=== PATIENT | female | born 1990 | race Caucasian/White ===

== ENCOUNTER 2016-07-10 21:50 | Inpatient (IN) | payer OTHER ==
[~2016-07-10] VITALS: Ht 167.6 cm; Wt 97.5 kg
[~2016-07-10 21:50] MED LIST: PREN1TAB17 BU
[2016-07-10 22:03] VITALS: Ht 167.6 cm; Wt 97.5 kg
[2016-07-10 22:04] VITALS: BP 105/58; PULSE 68; RESP 18
[2016-07-10] MEDS ORDERED: AMPICILLIN 2 GM/NS (PMX) 100 ML IV ONE (23:00)
[2016-07-10] MEDS ORDERED: OXYTOCIN 30 UNITS/LR 500 ML IV PRN (23:00)
[2016-07-10] MEDS ORDERED: LIDOCAINE 1% (MPF) 30 ML INJ INJ PRN (23:00)
[2016-07-10] MEDS ORDERED: MISOPROSTOL 200 MCG TAB PR PRN (23:00)
[2016-07-10] MEDS ORDERED: LACTATED RINGER'S 1,000 ML IV PRN (23:00)
[2016-07-10] MEDS ORDERED: OXYTOCIN 30 UNITS/LR 500 ML IV SCH (23:00)
[2016-07-10] MEDS ORDERED: METHYLERGONOVINE 0.2 MG INJ IM PRN (23:00)
[2016-07-10] MEDS ORDERED: CARBOPROST 250 MCG INJ IM PRN (23:00)
--- NOTE | 2016-07-10 23:06 | RADRPT ---
PROCEDURE: Obstetrical ultrasound greater than 14 weeks CLINICAL INDICATION: Active labor TECHNIQUE: Real time sonographic imaging of the gravid uterus is performed transabdominally and mu ltiple static atkinson scale and Doppler images are submitted for review as are measurements. The image s are reviewed on the PACS. COMPARISON: 04/27/2016 FINDINGS: There is a single living intrauterine gestation in cephalic presentation. The heart beat is estimated at 137 bpm. The measurements are as follows: BPD:9.39 cm HC:33.47 cm AC:37.69 cm FL:7.47 cm Estimated gestational age is 39 weeks 1 day, appropriate interval growth compared to the prior study . The estimated date of delivery is 07/16/2016. The estimated weight is 3986 grams. Placenta is fundal and grade2. There is no evidence of placenta previa or abruption. The amniotic fluid is qualitatively low. RPTAT:HJJR IMPRESSION: 1. Single viable intrauterine gestation in cephalic presentation estimated at 39 weeks 1 day, approp riate growth compared to the prior study of 04/27/2016 with the estimated date of delivery 7. 2. Estimated weight 3986 g, the 89th percentile. 3. Fundal grade 2 placenta without abruption. 4. Qualitatively low amniotic fluid. Physician Addi Date Time Electronically viewed and signed by Physician Addi on 07/10/2016 23:06 JR/
[2016-07-10] MEDS: LACTATED RINGER'S 1,000 ML IV SCH (23:09)
[2016-07-10 23:11] LABS: ADD SCAN DIFF NO
[2016-07-10 23:24] LABS: BASOPHILS % 0.1 % (0.0-2.0); EOSINOPHILS # 0.1 10^3/ul (0.0-0.5); EOSINOPHILS % 0.6 % (0.0-7.0); HEMATOCRIT 35.1 % (37.0-47.0); HEMOGLOBIN 11.7 g/dl (12.0-16.0); LYMPHOCYTES # 1.7 10^3/ul (0.8-2.9); LYMPHOCYTES % 17.5 % (15.0-51.0); MEAN CORPUSCULAR HGB CONC 33.3 g/dl (32.0-37.0); MEAN CORPUSCULAR VOLUME 87.1 fl (82.0-101.0); MEAN PLATELET VOLUME 11.2 fl (7.4-10.4); MONOCYTE # 0.9 10^3/ul (0.3-0.9); MONOCYTES % 9.4 % (0.0-11.0); NEUTROPHIL # 6.8 10^3/ul (1.6-7.5); NEUTROPHILS % 71.9 % (39.0-77.0); PLATELET COUNT 228 10^3/UL (140-415); RED BLOOD COUNT 4.03 10^6/ul (4.20-5.40); RED CELL DISTRIBUTION WIDTH 14.6 % (11.5-14.5); WHITE BLOOD COUNT 9.4 10^3/ul (4.8-10.8)
[2016-07-10 23:29] LABS: INR 0.92; PROTIME 12.4 Sec (12.2-14.2)
[2016-07-10 23:31] LABS: PARTIAL THROMBOPLASTIN TIME 28.6 Sec (25.0-35.0)
--- NOTE | 2016-07-10 23:46 | TRIAGE ---
OB Triage Datetime Report Generated by CPN: 07/10/2016 23:45 Datetime: 07/10/2016 23:06 Assessment Type: Admission Assessment Vaginal Bleeding: None Maternal Assessment Level of Consciousness: Fully Conscious DTR's/Clonus: DTRs 2+; No Clonus Headache: Denies Blurred Vision: No Respiratory Effort: Unlabored; Regular Rhythm; Equal Expansion Breath Sounds, Left: Clear and Equal Breath Sounds, Right: Clear and Equal Nausea/Vomiting: Denies RUQ Epigastric Pain: Denies Lower Extremities Edema: None Degree: None Upper Extremities Edema: None Degree: None Facial Edema: None Fall Risk Assessment History of Falling: (0) No Secondary Diagnosis: (0) No Ambulatory Aid: (0) Bedrest/Nurse Assist IV Therapy: (0) No Gait: (0) Normal/Bedrest/Immobile Mental Status: (0) Oriented to Own Ability Fall Score: 0 Fall Risk Score Definition: No Risk: No action required Labor Evaluation Frequency: 1-4 Duration (sec)2399: 50-90 Quality: Moderate Pattern: Normal: <= 5 Contractions in 10 Minutes Resting Tone [place]: Relaxed Heart Rate FHR Baseline Rate: 120 Variability: Moderate 6-25 bpm Accelerations: 15X15 Decelerations: None Category: Category I Pain Assessment Pain Scale: 8 Pain Presence: Intermittent Pain Type: Contraction Pain Location: Abdomen; Back Pain Goal: 0 Vaginal Exam Dilatation (cms): 4.0 Effacement (%): 80 Station: -2 Membrane Status: Ruptured Membranes Ruptured Date/Time: 07/10/2016 17:00 Membranes Rupture Method: Spontaneous Amniotic Fluid Color: Clear Amniotic Fluid Amount: Scant Amniotic Fluid Odor: None Datetime: 07/10/2016 22:50 Comments: off monitor, Principal [employer] Developer at bedside for EFW Datetime: 07/10/2016 22:32 Effacement (%): 80 Station: -2 Membrane Status: Ruptured Datetime: 07/10/2016 22:31 Vaginal Exam Dilatation (cms): 4.0 Membrane Status: Intact Datetime: 07/10/2016 22:30 Stage of : OB Triage Temperature Route: Oral Labor Evaluation Frequency: 2-5 Monitor Mode: External Duration (sec)2399: 60-150 Quality: Moderate Pattern: Normal: <= 5 Contractions in 10 Minutes Resting Tone [place]: Relaxed Heart Rate FHR Baseline Rate: 130 Monitor Mode: External US Variability: Moderate 6-25 bpm Accelerations: 15X15 Decelerations: None Category: Category I Pain Assessment Pain Scale: 8 Pain Presence: Intermittent Pain Type: Cramping Pain Location: Abdomen; Back Pain Goal: 5 Pain Relief Measures: Comfort Measures Datetime: 07/10/2016 22:22 Vaginal Exam Dilatation (cms): 4.0 Effacement (%): 80 Station: -2 Exam By: ALEJANDRA Pool: Positive Nitrazine: Positive Datetime: 07/10/2016 22:12 EGA: 38.3 Arrived By: Ambulatory Arrived From: Home Datetime: 07/10/2016 22:10 Assessment Type: Triage Maternal Assessment Level of Consciousness: Fully Conscious DTR's/Clonus: DTRs 2+; No Clonus Headache: Denies Blurred Vision: No Respiratory Effort: Unlabored; Regular Rhythm; Equal Expansion Nausea/Vomiting: Denies RUQ Epigastric Pain: Denies Lower Extremities Edema: None (Annotations: OBESE PT.) Degree: None Facial Edema: None Fall Risk Assessment History of Falling: (0) No Secondary Diagnosis: (0) No Ambulatory Aid: (0) Bedrest/Nurse Assist IV Therapy: (0) No Gait: (0) Normal/Bedrest/Immobile Mental Status: (0) Oriented to Own Ability Fall Score: 0 Fall Risk Score Definition: No Risk: No action required Comment: REDNESS AROUND 1.5X1.5 INCHES , ON RT. THIGH Datetime: 07/10/2016 22:08 Time of Arrival: 07/10/2016 21:46 EGA: 39.0 Arrived By: Wheelchair Arrived From: Home Chief Complaint: SROM AT 1700 AND CXS SINCE 1800 Movement: Present Contractions: Irregular Time Contractions Began: 07/10/2016 18:00 Rupture of Membranes: Ruptured Vaginal Bleeding: None Vaginal Discharge: Present Time Provider Notified: 07/10/2016 22:32 Provider Notified: ESHAGHIAN Initial Plan: EFM, ASSESSMENT, CALL MD FOR ORDERS Datetime: 04/27/2016 22:09 Fall Score: 0 Fall Risk Score Definition: No Risk: No action required Datetime: 04/27/2016 22:08 EGA: 28.3
[2016-07-10 23:50] LABS: BARBITURATES Negative (NEGATIVE); BENZODIAZEPINES Negative (NEGATIVE); CANNABINOIDS Negative (NEGATIVE); COCAINE Negative (NEGATIVE); OPIATES Negative (NEGATIVE)
[2016-07-11] MEDS ORDERED: FENTAnyl 2MCG/ML-ROPIV 0.2% 100 ML ONE (00:54)
[2016-07-11] MEDS: AMPICILLIN 1 GM/NS (PMX) 50 ML IV SCH ×2 (03:25→07:00)
[2016-07-11] MEDS: LACTATED RINGER'S 1,000 ML IV SCH (03:58)
[2016-07-11] MEDS ORDERED: OXYTOCIN 30 UNITS/LR 500 ML IV SCH (04:30)
[2016-07-11] MEDS ORDERED: FENTAnyl 2MCG/ML-ROPIV 0.2% 100 ML BAG EPI SCH (06:00)
[2016-07-11] MEDS ORDERED: NALOXONE (0.4 MG/ML) INJ IV PRN (06:00)
--- NOTE | 2016-07-11 06:51 | LDN ---
Date/Time of Note Date/Time of Note DATE: 07/11/16 TIME: 06:49 Delivery Summary Placenta Delivered: Spontaneously Meconium: none Perineum intact?: Yes Perineal laceration repair: right labia minora laceration repair with 4-0 monocryl Anesthesia type: Epidural Estimated blood loss: 150 Sponge & Needle done & correct: Yes All needle counts correct: Yes Any foreign bodies felt in the: No Problems: Delivery Information Sex Infant Sex: male Apgars 1 Minute: 9 5 Minute: 9 Suctioning Nose & mouth suctioned at irene: No Delee suction performed: No Umbilical Cord Umbilical cord with: 3 Vessels Cord presentations: no nuchal cord Cord Blood was obtained: Yes MIGUEL ANGEL CRUZ MD Jul 11, 2016 06:51
[2016-07-11] MEDS ORDERED: DIPHENHYDRAMINE 25 MG CAP PO PRN (07:00)
[2016-07-11] MEDS ORDERED: MISOPROSTOL 200 MCG TAB PR PRN (07:00)
[2016-07-11] MEDS ORDERED: WITCH HAZEL/GLYCERIN PAD PR PRN (07:00)
[2016-07-11] MEDS ORDERED: SENNA/DOCUSATE NA (8.6MG/50MG) TAB PO PRN (07:00)
[2016-07-11] MEDS ORDERED: CARBOPROST 250 MCG INJ IM PRN (07:00)
[2016-07-11] MEDS ORDERED: ONDANSETRON 4 MG INJ IV PRN (07:00)
[2016-07-11] MEDS ORDERED: METHYLERGONOVINE 0.2 MG INJ IM PRN (07:00)
[2016-07-11] MEDS ORDERED: BENZOCAINE 20% 56 ML SPRAY TOP PRN (07:00)
[2016-07-11] MEDS ORDERED: OXYTOCIN 30 UNITS/LR 500 ML IV PRN (07:00)
[2016-07-11] MEDS ORDERED: OXYCODONE/ASPIRIN (4.88/325) TAB PO PRN ×2 (07:00)
[2016-07-11] MEDS: OXYTOCIN 30 UNITS/LR 500 ML IV SCH ×2 (07:26→08:00)
--- NOTE | 2016-07-11 08:40 | PREOPHP ---
DATE OF ADMISSION: 07/10/2016 HISTORY OF PRESENT ILLNESS: Ms. Meera Velazquez is a 26-year-old 2, para 1, EDC 07/17/2016 int rauterine at 39 weeks gestational age, presented to triage complaining of regular contract ions and spontaneous rupture of membranes around 1700 last night. On exam, she was found to be 480, -2. Her care took place at [facility]. MEDICAL HISTORY: Anemia. MEDICATIONS: 1. Iron. 2. vitamins. PAST SURGICAL HISTORY: None. OBSTETRICAL HISTORY: x1 vaginal delivery. GYNECOLOGIC HISTORY: 12, regular 3 to 4 days. Denies any sexually transmitted diseases. Sexually active with 1 partner. SOCIAL HISTORY: Denies any smoking, drugs or alcohol. FAMILY HISTORY: None. PHYSICAL EXAMINATION: HEENT: Within normal. LUNGS: CTA bilateral. CARDIOVASCULAR: S1, S2, regular rhythm. ABDOMEN: Gravid, nontender. Negative CVA bilateral. EXTREMITIES: Negative edema. No calf tenderness. VAGINAL EXAM: 480, -2. Rupture. heart tracing category 1, toco every 7 minutes. ASSESSMENT: Intrauterine at term in labor, spontaneous rupture of membranes. PLAN: Admitted for expected management and pain management. Dictated By: MIGUEL ANGEL MELENDEZ/OFELIA Conf#: [id number] DID#: [id number]
[2016-07-11] MEDS: SENNA/DOCUSATE NA (8.6MG/50MG) TAB PO SCH ×2 (09:00→21:29)
[2016-07-11 09:10] VITALS: BP 103/54; PULSE 98; RESP 18
[2016-07-11] MEDS: LANOLIN 7 GM TUBE TOP PRN (11:03)
[2016-07-11] MEDS: IBUPROFEN 600 MG TAB PO SCH ×2 (11:03→17:36)
[2016-07-11] MEDS: LACTATED RINGER'S 1,000 ML IV* SCH ×3 (11:25→22:51)
[2016-07-11 16:00] VITALS: BP 105/72; PULSE 72; RESP 19
[2016-07-11 19:30] VITALS: BP 98/57; PULSE 85; RESP 18
[2016-07-12] VITALS: BP 99/50; PULSE 69; RESP 18
[2016-07-12] MEDS: IBUPROFEN 600 MG TAB PO SCH ×4 (00:09→17:30)
[2016-07-12 04:00] VITALS: BP 94/53; PULSE 71; RESP 18
[2016-07-12] MEDS: LACTATED RINGER'S 1,000 ML IV* SCH ×3 (06:51→22:51)
[2016-07-12 07:30] VITALS: BP 100/53; PULSE 67; RESP 19
[2016-07-12 07:56] LABS: ADD SCAN DIFF NO
[2016-07-12 08:01] LABS: BASOPHILS % 0.2 % (0.0-2.0); EOSINOPHILS # 0.1 10^3/ul (0.0-0.5); EOSINOPHILS % 1.1 % (0.0-7.0); HEMATOCRIT 34.3 % (37.0-47.0); HEMOGLOBIN 11.1 g/dl (12.0-16.0); LYMPHOCYTES # 1.7 10^3/ul (0.8-2.9); LYMPHOCYTES % 20.3 % (15.0-51.0); MEAN CORPUSCULAR HEMOGLOBIN 28.8 pg (29.0-33.0); MEAN CORPUSCULAR HGB CONC 32.4 g/dl (32.0-37.0); MEAN CORPUSCULAR VOLUME 88.9 fl (82.0-101.0); MEAN PLATELET VOLUME 10.8 fl (7.4-10.4); MONOCYTE # 0.7 10^3/ul (0.3-0.9); MONOCYTES % 8.1 % (0.0-11.0); NEUTROPHIL # 5.8 10^3/ul (1.6-7.5); NEUTROPHILS % 69.8 % (39.0-77.0); PLATELET COUNT 172 10^3/UL (140-415); RED BLOOD COUNT 3.86 10^6/ul (4.20-5.40); RED CELL DISTRIBUTION WIDTH 15.1 % (11.5-14.5); WHITE BLOOD COUNT 8.3 10^3/ul (4.8-10.8)
[2016-07-12] MEDS: SENNA/DOCUSATE NA (8.6MG/50MG) TAB PO SCH ×2 (10:07→21:33)
--- NOTE | 2016-07-12 12:59 | PD.PPDC ---
[employer] Discharge Instruction Condition Patient Condition: Good Diet Diet: Resume Regular Diet Activity/Restrictions Restrictions: No Driving No Sexual Activity Nothing in the Vagina No [place] No Tampons, douche Follow-up Follow-up with Physician: 3, Week/Weeks Return to clinic for NOTEMAN Instructions: Fever greater than 101 Chills Worsening abdominal pain Excessive Vaginal Bleeding More than 2 pads per hour Unable to tolerate diet OB Instructions: Breast Tenderness Depression Blurried Vision Headache Surgical Instructions: Incisional Drainage Incisional Redness MIGUEL ANGEL CRUZ MD Jul 12, 2016 12:59
--- NOTE | 2016-07-12 13:25 | DS ---
DATE OF ADMISSION: 07/10/2016 DATE OF DISCHARGE: 07/12/2016 FINAL DIAGNOSIS: Intrauterine at term in labor, delivered. PROCEDURE: A normal spontaneous vaginal delivery of a viable male, 9 and 9 respectively at 1 and 5 minutes. She had a right labia minora laceration repair. She had an uneventful da y 1. She is ambulating, tolerating diet, positive flatulence, positive bowel movement. She will fo llow up in the office in 3 weeks for care. She will be discharged on Motrin 600 mg p.o. q.6h. #40. Dictated By: MIGUEL ANGEL MELENDEZ/OFELIA Conf#: [id number] DID#: [id number]
[2016-07-12 16:00] VITALS: BP 117/69; PULSE 77; RESP 19
[2016-07-12] MEDS: LANOLIN 7 GM TUBE TOP PRN (17:32)
[2016-07-12 19:38] VITALS: BP 110/55; PULSE 76; RESP 18
[2016-07-13 04:00] VITALS: BP 100/61; PULSE 62; RESP 18
[2016-07-13] MEDS: IBUPROFEN 600 MG TAB PO SCH ×3 (06:00→11:27)
[2016-07-13] MEDS: LACTATED RINGER'S 1,000 ML IV* SCH (06:51)
[2016-07-13 08:00] VITALS: BP 104/56; PULSE 73; RESP 18
[2016-07-13] MEDS: SENNA/DOCUSATE NA (8.6MG/50MG) TAB PO SCH (09:00)
== END 2016-07-13 17:20 | disposition home or self-care (01) | DRG 775 ==
LOC: OBT 21:50 → L-D 21:51 → OBT 22:33 → PP1 07-11 08:54
PROVIDERS: ADMIT Obstetrics & Gynecology; ATTEND Obstetrics & Gynecology
PROC: 10E0XZZ Delivery of Products of Conception, External Approach (ICD-10-PCS; principal; 2016-07-11)
PROC: 0HQ9XZZ Repair Perineum Skin, External Approach (ICD-10-PCS; 2016-07-11)
DX: O70.0 First degree perineal laceration during delivery (principal); Z37.0 Single live birth; Z3A.39 39 weeks gestation of pregnancy
CPT/HCPCS: 62319; 76815; 80307; 85025; 85610; 85730; 86592; 86900; 86901; 87340; G0463; J0290; J2590; J3010; J7120

== ENCOUNTER 2016-08-18 05:55 | Emergency (ER) | payer OTHER ==
[~2016-08-18] VITALS: Ht 165.1 cm; Wt 89.5 kg
[2016-08-18 06:14] VITALS: Ht 165.1 cm; Wt 89.5 kg
--- NOTE | 2016-08-18 07:00 | ERD ---
ER Documentation Chief Complaint Date/Time DATE: 08/18/16 TIME: 06:[address] x 2 days HPI This is a 26-year-old female presents to the emergency room for evaluation of a sore throat for the past 2 days. This patient presents to the emergency room with her son who is had similar symptoms for the past week. She states that her father also had similar symptoms last week. The patient denies any fevers, and states she has nasal congestion as well. The patient came to the emergency room for further evaluation. ROS All systems reviewed and are negative except as per history of present illness. Medications Home Meds Reported Medications Vit-Iron Fumarate-FA ( Tablet) 1 Each Tablet, 1 EACH BU DAILY 11/08/13 Allergies Allergies: Coded Allergies: No Known Drug Allergies (Verified Allergy, Unknown, 07/10/16) PMhx/Soc History of Surgery: No Anesthesia Reaction: No Hx Neurological Disorder: No Hx Respiratory Disorders: No Hx Cardiac Disorders: No Hx Psychiatric Problems: No Hx Miscellaneous Medical Probl: No Hx Alcohol Use: No Hx Substance Use: No Hx Tobacco Use: Yes Physical Exam Vitals Vital Signs Date Time Temp Pulse Resp B/P Pulse Ox O2 Delivery O2 Flow Rate FiO2 08/18/16 06:14 98.4 96 20 117/70 97 Physical Exam Const: No acute distress Head: Atraumatic Eyes: Normal Conjunctiva ENT: Bilateral nasal congestion, pharyngeal erythema with no visible exudate , normal External Ears, Nose and Mouth. Neck: Full range of motion..~ No meningismus. Resp: Clear to auscultation bilaterally Cardio: Regular rate and rhythm, no murmurs Abd: Soft, non tender, non distended. Normal bowel sounds Skin: No petechiae or rashes Back: No midline or flank tenderness Ext: No cyanosis, or edema Neur: Awake and alert Psych: Normal Mood and Affect Procedures/MDM This 26-year-old female presents to the ER for evaluation of upper respiratory complaints including nasal congestion and a dry cough with a sore throat. When I evaluated this patient she was afebrile, not hypoxic, no respiratory distress. Breath sounds were clear bilaterally. The patient was tested for influenza or influenza swab was negative. This patient will be discharged at this time with a prescription for Afrin for nasal congestion Departure Diagnosis: Primary Impression: Acute URI Condition: Stable LEILA HARDING DO Aug 18, 2016 07:00
[2016-08-18] MEDS ORDERED: OXYM15SP34 NASAL (07:01)
[2016-08-18 08:14] VITALS: BP 115/55; PULSE 77; RESP 18; TEMP 97.9
== END 2016-08-18 08:16 | disposition home or self-care (01) ==
LOC: E/R 05:55
DX: J06.9 Acute upper respiratory infection, unspecified (principal); Z87.891 Personal history of nicotine dependence
CPT/HCPCS: 87400; Z7502; 99283

== ENCOUNTER 2017-10-08 11:22 | Emergency (ER) | END 2017-10-08 12:35 | disposition left against medical advice (07) ==